=== PATIENT | male | born 1955 | race Caucasian/White ===

== ENCOUNTER 2016-04-27 20:40 | Emergency (ER) | payer BC, OTHER ==
[~2016-04-27] VITALS: Ht 180.3 cm; Wt 94.1 kg
[2016-04-27 20:51] VITALS: TEMP 36.6; Ht 180.3 cm; Wt 94.1 kg
--- NOTE | 2016-04-27 21:47 | DIAGNOSTIC IMAGING REPORT ---
SINGLE VIEW CHEST CLINICAL HISTORY: Change in mental status. FINDINGS: An AP, portable, upright chest radiograph is obtained. No prior studies are available for comparison at the time of dictation. The examination is degraded by portable technique and apical lordotic positioning. The heart is mildly enlarged and there is atherosclerotic calcification of the thoracic aorta. The pulmonary vasculature is noncongested. There is mild bibasilar atelectasis. No airspace consolidation or large pleural effusion is identified. Apical scarring is observed. There is no pneumothorax. The bony thorax is grossly intact. Degenerative change and mild scoliosis are identified in the thoracic spine. IMPRESSION: Cardiomegaly with no active disease in the chest. Electronically signed by: Jose Eduardo Pond M.D. 04/27/2016 9:45 PM Dictated Date/Time: 04/27/2016 9:44 PM
[2016-04-27] MEDS ORDERED: ALPR1TAB3 PO (22:18)
[2016-04-27] MEDS ORDERED: OMEP40CA41 PO (22:18)
[2016-04-27] MEDS ORDERED: METO50TA16 PO (22:18)
[2016-04-27] MEDS ORDERED: FURO-85 PO (22:18)
[2016-04-27] MEDS ORDERED: METH10TA2 PO (22:18)
[2016-04-27] MEDS ORDERED: ATOR-22 PO (22:18)
[2016-04-27] MEDS ORDERED: POTA-65 PO (22:18)
[2016-04-27] MEDS ORDERED: ASPI325T39 PO (22:18)
[2016-04-27 22:23] LABS: BASO % 0.5 %; BASO ABS # 0.03 K/uL (0-0.2); COMPLETE YES; EOS % 5.8 %; HEMATOCRIT 45.5 % (42-52); IG% 0.2 %; LYMPH % 26.3 %; LYMPH ABS # 1.45 K/uL (1.2-3.4); MEAN CELL VOLUME 95.2 fL (80-100); MEAN CORPUSCULAR HEMOGLOBIN 31.8 pg (25-34); MEAN CORPUSCULAR HGB CONC 33.4 g/dl (32-36); MEAN PLATELET VOLUME 9.9 fL (7.4-10.4); MONO % 9.4 %; NEUT % 57.8 %; PLATELET COUNT 168 K/uL (130-400); RED BLOOD COUNT 4.78 M/uL (4.7-6.1); WHITE BLOOD COUNT 5.52 K/uL (4.8-10.8)
[2016-04-27] MEDS ORDERED: SODIUM CHLORIDE 0.9% 1000ML 1,000 ML IV ONE (22:30)
[2016-04-27 22:41] LABS: ALT/SGPT 10 U/L (12-78); BLOOD UREA NITROGEN 34 mg/dl (7-18); BUN/CREATININE RATIO 20.2 (10-20); CALCIUM 8.2 mg/dl (8.5-10.1); CARBON DIOXIDE 23 mmol/L (21-32); CHLORIDE 113 mmol/L (98-107); GLUCOSE 91 mg/dl (70-99); POTASSIUM 3.9 mmol/L (3.5-5.1); SODIUM 146 mmol/L (136-145)
[2016-04-27 22:42] LABS: AST/SGOT 22 U/L (15-37)
[2016-04-27 22:53] LABS: ALB/GLOB RATIO 0.9 (0.9-2); ALKALINE PHOSPHATASE 70 U/L (45-117)
[2016-04-27 22:56] LABS: INR 1.1 (0.9-1.1); PARTIAL THROMBOPLASTIN RATIO 1.2; PROTHROMBIN TIME (PATIENT) 11.6 SECONDS (9.0-12.0)
--- NOTE | 2016-04-27 23:02 | DIAGNOSTIC IMAGING REPORT ---
CT SCAN OF THE BRAIN WITHOUT IV CONTRAST CLINICAL HISTORY: Change in mental status. COMPARISON STUDY: No priors. TECHNIQUE: Unenhanced axial CT scan of the brain is performed from the vertex to the skull base. Automated dose control exposure was utilized. CT DOSE: 537.48 mGy.cm FINDINGS: Brain parenchyma: The brain parenchyma is normal in appearance. There is no hemorrhage, mass effect, or evidence of acute territorial ischemia by CT criteria. Duckworth-white matter is preserved. No extra-axial fluid collection is seen. Ventricles, sulci, cisterns: Normal in configuration. Intracranial vasculature: The visualized intracranial vasculature at the skull base is normal in appearance. Calvarium: Unremarkable. Sinuses and mastoids: The visualized paranasal sinuses are clear. The mastoid air cells are well pneumatized. Orbits: The bony orbits are grossly intact. IMPRESSION: There is no hemorrhage, mass effect, or evidence of acute territorial ischemia by CT criteria. Electronically signed by: Jose Eduardo Pond M.D. 04/27/2016 11:00 PM Dictated Date/Time: 04/27/2016 10:58 PM
[2016-04-27 23:56] LABS: URINE APPEARANCE CLEAR (CLEAR); URINE BILIRUBIN NEG (NEG); URINE COLOR YELLOW; URINE EPITHELIAL CELL AUTO 0-5 /lpf (0-5); URINE NITRITE NEG (NEG); URINE PH 5.5 (4.5-7.5); UROBILINOGEN NEG (NEG); ZZUR CULT IF INDIC CLEAN CATCH NO
[2016-04-28 00:01] LABS: MANUAL MICROSCOPIC REQUIRED? NO; REVIEW REQ? NO
[2016-04-28 00:17] LABS: BENZODIAZEPINE, URINE POS (NEG); COCAINE,URINE NEG (NEG); PHENCYCLIDINE, URINE NEG (NEG)
[2016-04-28 01:02] VITALS: BP 112/71; PULSE 99; O2SAT 96
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
[2016-04-30 14:16] LABS: HYDROXYETHYLFLURAZEPAM CONF NEGATIVE NG/ML (CUTOFF=50); HYDROXYMIDAZOLAM NEGATIVE NG/ML (CUTOFF=50); HYDROXYTRIAZOLAM CONF NEGATIVE NG/ML (CUTOFF=50); METHADONE METABOLITE 3200 NG/ML (CUTOFF=100); METHADONE VERIFIC 4980 NG/ML (CUTOFF=100); TEMAZEPAM CONF NEGATIVE NG/ML (CUTOFF=50)
== END 2016-04-28 01:00 | disposition home or self-care (01) ==
LOC: EDBD 20:40 → C.EDC 20:45
DX: R53.81 Other malaise (principal); Z79.899 Other long term (current) drug therapy; I10 Essential (primary) hypertension; G89.29 Other chronic pain; F17.210 Nicotine dependence, cigarettes, uncomplicated; I48.91 Unspecified atrial fibrillation; Z79.82 Long term (current) use of aspirin